=== PATIENT | female | born 1985 | race Two or more races ===

== ENCOUNTER 2020-01-15 13:16 | Emergency (ER) | payer OTHER ==
[~2020-01-15] VITALS: Ht 154.9 cm; Wt 65.8 kg
[2020-01-15] MEDS ORDERED: [UNRECOGNIZED DRUG - OTHER] PO (13:25)
== END 2020-01-15 22:33 | disposition home or self-care (01) ==
LOC: ER 13:16
DX: K29.60 Other gastritis without bleeding (principal); E86.0 Dehydration